=== PATIENT | male | born 1960 | race Caucasian/White ===

== ENCOUNTER 2025-02-04 13:24 | Outpatient (CLI) | payer BC, SELFPAY ==
[2025-02-04 13:31] LABS: Abs Immature Grans 0.05 10^3/uL (0.0-0.06); HCT 39.5 % (40.0-50.0); HGB 13.1 g/dL (13.5-17.5); Immature Grans % 0.8 %; MCH 29.9 pg (27.0-33.0); MCHC 33.2 % (32.0-36.0); MCV 90 fL (80-95); MPV 8.8 fL (8.0-11.0); Platelet Count 280 10^3/uL (130-400); RBC 4.38 10^6/uL (4.36-5.78); RDW 14.4 % (11.8-14.1); RDW-SD 47.8 fL; WBC 6.06 10^3/uL (4.4-10.8)
[2025-02-04 14:29] LABS: Anion Gap 10.1 mmol/L (3-11); BUN 22 mg/dL (7-18); CO2 25.9 mmol/L (21.0-32.0); Calcium 8.9 mg/dL (8.5-10.1); Chloride 104 mmol/L (98-107); Estimated GFR 85.10 (mL/min/1.73m2); Glucose 87 mg/dL (74-106); Potassium 3.9 mmol/L (3.5-5.1); Sodium 140 mmol/L (136-145); Uric Acid 6.7 mg/dL (3.5-7.2)
== END 2025-02-04 13:25 | disposition home or self-care (01) ==
LOC: LBO 13:24
PROVIDERS: Visit Provider Nurse Practitioner Family
DX: M79.672 Pain in left foot (principal)
CPT/HCPCS: 36415; 80048; 84550; 85025

== ENCOUNTER 2025-02-04 14:35 | Outpatient (CLI) | payer BC, SELFPAY ==
--- NOTE | 2025-02-04 12:00 | DI.RAD_ITS ---
Exam(s) XR FOOT LT COMPLETE EXAM: XR FOOT LT COMPLETE CLINICAL HISTORY: evaluate pathology, lt foot pain, M79.672. TECHNIQUE: 2D digital imaging was performed. Three views. COMPARISON: No exams were available for comparison FINDINGS: BONES: No acute fracture is present. No bony destructive lesion is seen. JOINTS: No dislocation present. [id number] degenerative changes of the 1st MTP joint. No significant hallux valgus. SOFT TISSUE: Dorsal swelling. IMPRESSION: No acute abnormality. 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 DATA REPOSITORY: RADIATION DOSE DELIVERED:
== END 2025-02-04 14:55 ==
LOC: DI 14:44
PROVIDERS: Visit Provider Nurse Practitioner Family
DX: M19.072 Primary osteoarthritis, left ankle and foot (principal)
CPT/HCPCS: 73630